=== PATIENT | male | born 1995 | race Asian ===

== ENCOUNTER 2023-08-24 08:00 | Outpatient (CLI) | payer OTHER, SELFPAY | END 2023-08-24 08:01 | disposition home or self-care (01) | LOC: NFLDREF 08-28 19:33 | PROVIDERS: PCP Family Medicine; Referring Provider Family Medicine; Visit Provider Family Medicine | DX: Z13.1 Encounter for screening for diabetes mellitus (principal); Z13.220 Encounter for screening for lipoid disorders | CPT/HCPCS: 80061; 82947 ==